=== PATIENT | female | born 1960 | race Caucasian/White ===

== ENCOUNTER 2018-02-22 08:50 | Outpatient (CLI) | payer OTHER ==
--- NOTE | 2018-02-22 12:07 | ULT ---
ABDOMEN ULTRASOUND: HISTORY: Bilateral flank pain. FINDINGS: The liver demonstrates homogeneous echotexture without focal mass or intrahepatic ductal dilatation. The spleen is normal, measuring 9.3 cm in length. No shadowing gallstones, gallbladder wall thicken ing, or pericholecystic fluid is seen. There is a 4 x 3 x 6 mm echogenic, nonshadowing, immobile foc us of the right inferior wall of the gallbladder, consistent with a bile duct. The common duct measu res 3 mm in diameter. The kidneys are normal. The visualized portions of the pancreas, aorta, and I VC are unremarkable. IMPRESSION: A 6 mm gallbladder polyp. POS: [facility]
== END 2018-02-22 08:51 | disposition home or self-care (01) ==
LOC: SCSULT 08:50
PROVIDERS: ATTEND Family Medicine
DX: R10.9 Unspecified abdominal pain (principal); K82.4 Cholesterolosis of gallbladder; Z82.71 Family history of polycystic kidney
CPT/HCPCS: 76700